=== PATIENT | male | born 1940 | race Caucasian/White ===

== ENCOUNTER → 2017-07-27 | Day surgery (SDC) | payer MEDICARE, OTHER ==
[~2017-07-27] MED LIST: EPINEPHrine 1 MG/ML VIAL; LIDOCAINE 1% PF 2 ML VIAL. ID; MIDAZOLAM HCL/PF 2 MG/2 ML VIAL. IV; PROPOFOL 20 ML IV; fentaNYL PF VIAL 100 MCG/2 ML VIAL IV
[2017-07-27] MEDS: IV RINGERS,LACTATED 1000ML 1,000 ML IV ×2 (10:40→10:42)
[2017-07-27 10:46] LABS: HEMOGLOBIN 11.5 g/dL (13.0-17.5); PLATELET COUNT 385 x10^3/uL (140-400); WHITE BLOOD COUNT 6.6 x10^3/uL (4.0-11.0)
[2017-07-27] MEDS: ALBUTEROL SULFATE 2.5 MG/3 ML NEBU. NEB (10:50)
[2017-07-27 11:03] LABS: INR 1.9 (0.8-1.1); PROTHROMBIN TIME PATIENT 21.5 SEC (11.7-14.0)
== END | disposition home or self-care (01) ==
LOC: SURG 09:48
DX: J18.9 Pneumonia, unspecified organism (principal); E78.00 Pure hypercholesterolemia, unspecified; I10 Essential (primary) hypertension; Z86.718 Personal history of other venous thrombosis and embolism; J44.9 Chronic obstructive pulmonary disease, unspecified; Z90.49 Acquired absence of other specified parts of digestive tract; Z85.51 Personal history of malignant neoplasm of bladder; M19.90 Unspecified osteoarthritis, unspecified site; Z79.01 Long term (current) use of anticoagulants; F17.200 Nicotine dependence, unspecified, uncomplicated
CPT/HCPCS: 31622; 31624; 36415; 85027; 85610; 87070; 87102; 87116; 87205; 88112; 94640; J0171; J2704; J7613

== ENCOUNTER → 2017-09-06 | Day surgery (SDC) | payer MEDICARE, OTHER ==
[~2017-09-06] MED LIST changes: -EPINEPHrine 1 MG/ML VIAL; -LIDOCAINE 1% PF 2 ML VIAL. ID; +LIDOCAINE 2% PF Vial for OR 5 ML VIAL.; -MIDAZOLAM HCL/PF 2 MG/2 ML VIAL. IV; -PROPOFOL 20 ML IV; +PROPOFOL 40 ML IV; -fentaNYL PF VIAL 100 MCG/2 ML VIAL IV
[2017-09-06] MEDS: IV RINGERS,LACTATED 1000ML 1,000 ML IV (07:30)
== END ==
LOC: ENDOS 06:47
DX: K29.50 Unspecified chronic gastritis without bleeding (principal); K64.0 First degree hemorrhoids; K57.30 Diverticulosis of large intestine without perforation or abscess without bleeding; Z86.718 Personal history of other venous thrombosis and embolism; J44.9 Chronic obstructive pulmonary disease, unspecified; I10 Essential (primary) hypertension; Z79.01 Long term (current) use of anticoagulants; F17.210 Nicotine dependence, cigarettes, uncomplicated; E78.00 Pure hypercholesterolemia, unspecified; M19.90 Unspecified osteoarthritis, unspecified site; Z95.1 Presence of aortocoronary bypass graft; Z90.49 Acquired absence of other specified parts of digestive tract; Z98.890 Other specified postprocedural states; Z92.21 Personal history of antineoplastic chemotherapy; Z72.89 Other problems related to lifestyle; Z85.51 Personal history of malignant neoplasm of bladder; D50.9 Iron deficiency anemia, unspecified; Z79.899 Other long term (current) drug therapy
CPT/HCPCS: 43235; 45378; J2001; J2704

== ENCOUNTER → 2017-09-29 | Outpatient (CLI) | payer MEDICARE, OTHER ==
[2017-09-06 08:57] VITALS: BP 126/78
[~2017-09-29] MED LIST changes: +CETI10CA PO; +CILO100T PO; +FLUT16SP2 NS; +Hydrocodone Bit/Acetaminophen PO; -LIDOCAINE 2% PF Vial for OR 5 ML VIAL.; +LISI-334 PO; -PROPOFOL 40 ML IV; +SIMV40TA PO; +TIOT18CA IH; +VENTOLIN HFA18 GM IH; +WARF-78 PO
[2017-10-03 17:16] LABS: C ANCA <1:20 titer (Neg:<1:20); P ANCA <1:20 titer (Neg:<1:20)
[2017-10-03 20:14] LABS: ASPERGILLUS 0.21 kU/L (Class 0/I)
== END | disposition home or self-care (01) ==
LOC: LAB 15:14
PROVIDERS: ATTEND Internal Medicine Critical Care Medicine
DX: R91.8 Other nonspecific abnormal finding of lung field (principal); I10 Essential (primary) hypertension; E78.5 Hyperlipidemia, unspecified; E78.00 Pure hypercholesterolemia, unspecified; J44.9 Chronic obstructive pulmonary disease, unspecified; Z79.01 Long term (current) use of anticoagulants; Z86.2 Personal history of diseases of the blood and blood-forming organs and certain disorders involving the immune mechanism; Z87.891 Personal history of nicotine dependence; Z85.51 Personal history of malignant neoplasm of bladder; Z92.21 Personal history of antineoplastic chemotherapy; Z86.718 Personal history of other venous thrombosis and embolism; Z90.49 Acquired absence of other specified parts of digestive tract
CPT/HCPCS: 36415; 86001; 86021

== ENCOUNTER → 2017-10-05 | Outpatient (CLI) | payer MEDICARE, OTHER ==
[2017-09-06 08:57] VITALS: BP 126/78
--- NOTE | 2017-10-05 15:18 | RAD ---
FDG tumor localization scan, PET/CT, 10/05/2017: History: Lung mass Following IV injection of 13.9 mCi of 18 F-FDG, imaging was performed from the skull base to the proximal thighs. The noncontrast CT component was performed for attenuation correction and anatomic localization purposes rather than for primary diagnosis. The patient's blood glucose level at the time of injection was 89 MG/DL. There is a small hypermetabolic nodule demonstrating a maximum SUV of 4.1 present along the posterior aspect of the angle of the mandible on the left. Its exact location is not clear due to misregistration from patient motion and dental artifacts on the CT component. It may lie along the inferior margin of left parotid gland. The neck activity is otherwise unremarkable. There is a large cavitary mass in the right upper chest centered in the right upper lobe extending into the apex. Its margins are irregular and hypermetabolic. Maximum SUV in the hypermetabolic components ranges from approximately 5-7. It measures at least 9 x 9 cm. A small amount of fluid is evident in the cavitary component. There are small irregular hypermetabolic extensions anteriorly and medially. There is a mildly hypermetabolic subcarinal node or node cluster with a maximum SUV of 3.7. There is a small tree-in-bud type opacity medially in the right middle lobe which is mildly hypermetabolic with a maximum SUV of 3.9. There are mildly hypermetabolic infiltrates in the right lower lobe, likely inflammatory in nature. There are emphysematous changes in the lungs. A calcified scar is present in the left upper lobe. No hypermetabolic left lung lesion is seen. Normal GI tract and urinary tract activity is present in the abdomen and pelvis. No hypermetabolic abdominal or pelvic lesion is seen. Incidental CT findings include the presence of extensive calcific plaquing of the aorta and its branches. There is a 5.1 cm infrarenal abdominal aortic aneurysm. It has increased in size since 01/28/2011 at which time it measured 4.1 cm. Sigmoid diverticula are present. IMPRESSION: 1. Large cavitary hypermetabolic right upper lung mass suggesting a primary lung malignancy. An infectious process/abscess is much less likely. 2. Mild mediastinal adenopathy. 3. Mildly hypermetabolic right middle lobe and right lower lobe infiltrates may be inflammatory. 4. Small hypermetabolic nodule along the inferior margin of the left parotid gland 5. Incidentally noted is a moderate-sized infrarenal abdominal aortic aneurysm.
== END | disposition home or self-care (01) ==
LOC: PETSC 12:37
PROVIDERS: ATTEND Internal Medicine Critical Care Medicine
DX: I71.4 Abdominal aortic aneurysm, without rupture (principal); K11.8 Other diseases of salivary glands; K57.30 Diverticulosis of large intestine without perforation or abscess without bleeding; I10 Essential (primary) hypertension; E78.5 Hyperlipidemia, unspecified; E78.00 Pure hypercholesterolemia, unspecified; J44.9 Chronic obstructive pulmonary disease, unspecified; R91.8 Other nonspecific abnormal finding of lung field; Z79.01 Long term (current) use of anticoagulants; Z86.2 Personal history of diseases of the blood and blood-forming organs and certain disorders involving the immune mechanism; Z86.718 Personal history of other venous thrombosis and embolism; Z92.21 Personal history of antineoplastic chemotherapy; Z85.51 Personal history of malignant neoplasm of bladder; Z90.49 Acquired absence of other specified parts of digestive tract
CPT/HCPCS: 78815; A9552

== ENCOUNTER 2017-11-01 07:00 | Outpatient (CLI) | payer MEDICARE, OTHER ==
[~2017-11-01] VITALS: Ht 177.8 cm; Wt 61.2 kg
[2017-11-01] VITALS (13 sets, daily range): BP systolic 97–130; BP diastolic 63–79
[2017-11-01] MEDS ORDERED: APIX2.5T PO (07:13)
[2017-11-01 07:27] LABS: BASO # 0.1 x10^3/uL (0.0-0.2); BASO % 2 % (0-3); EOS # 0.4 x10^3/uL (0.0-0.7); EOS % 7 % (0-3); HEMATOCRIT 35.6 % (39.0-53.0); HEMOGLOBIN 12.2 g/dL (13.0-17.5); LYMPH # 0.9 x10^3/uL (1.0-4.8); LYMPH % 15 % (24-48); MEAN CORPUSCULAR HEMOGLOBIN 34 pg (25-35); MEAN CORPUSCULAR HGB CONC 34 g/dL (31-37); MEAN CORPUSCULAR VOLUME 98 fL (79-100); MONO # 0.7 x10^3/uL (0.0-1.1); MONO % 12 % (0-9); NEUT # 3.6 x10^3uL (1.8-7.7); NEUT % 63 % (31-73); PLATELET COUNT 274 x10^3/uL (140-400); RED BLOOD COUNT 3.63 x10^6/uL (4.30-5.70); RED CELL DISTRIBUTION WIDTH 15.1 % (11.5-14.5); WHITE BLOOD COUNT 5.7 x10^3/uL (4.0-11.0)
[2017-11-01 07:35] LABS: PROTHROMBIN TIME PATIENT 13.5 SEC (11.7-14.0)
[2017-11-01] MEDS ORDERED: MIDAZOLAM HCL/PF 2 MG/2 ML VIAL. ONE (08:07)
[2017-11-01] MEDS ORDERED: FLUMAZENIL 0.5 MG/5 ML VIAL. IV ONE (08:08)
[2017-11-01] MEDS ORDERED: fentaNYL PF VIAL 100 MCG/2 ML VIAL ONE (08:08)
[2017-11-01] MEDS ORDERED: NALOXONE 0.4 MG/ML VIAL. ONE (08:08)
[2017-11-01] MEDS ORDERED: LIDOCAINE WITH 8.4% SOD BICARB 3 ML DISP.SYRIN. ONE (08:16)
[2017-11-01] MEDS ORDERED: MIDAZOLAM HCL/PF 2 MG/2 ML VIAL. IV ONE (08:45)
[2017-11-01] MEDS ORDERED: fentaNYL PF VIAL 100 MCG/2 ML VIAL IV ONE (08:45)
[2017-11-01] MEDS ORDERED: LIDOCAINE WITH 8.4% SOD BICARB 3 ML DISP.SYRIN. IJ ONE (08:45)
--- NOTE | 2017-11-01 09:14 | PDOC ---
MODERATE SEDATION ASSESSMENT RISKS/ALTERNATIVES Risks/Alternatives Risks and alternatives of this type of sedation and procedure discussed with: RISK/ALTERNATIVES: Patient H & P ON CHART H & P H & P on chart and reviewed for co-morbid conditions and appropriate labs. H&P ON CHART: Yes STATUS PREG STATUS ASSESSED: Yes MEDS/ALLERGIES REVIEWED Meds/Allergies Reviewed Medications and Allergies including time and route of recently administered narcotics and sedatives. MEDS/ALLERGIES REVIEWED: Yes ASA RATING ASA RATING: II AIRWAY ASSESSMENT Airway Assessment Airway patency, oral function limitations, presence of caps, crowns, dentures, partials, and ability to extend neck assessed. AIRWAY ASSESSMENT: Yes MALLAMPATI SCORE MALLAMPATI SCORE: II PRE-SEDATION ASSESSMENT PRE-SEDATION ASSESSMENT: Yes ILIR MOHAN MD Nov 01, 2017 09:14
--- NOTE | 2017-11-01 09:15 | PDOC ---
BRIEF OPERATIVE NOTE Pre-Op Diagnosis right cavitary lung mass Post-Op Diagnosis same Procedure Performed CT Lung biopsy Surgeon Eryn Anesthesia Type: Conscious Sedation Specimens Obtained 5 x 20g cores divided between formalin and saline for microbiological analysis Findings CT right lung biopsy Complications No immediate ILIR MOHAN MD Nov 01, 2017 09:15
--- NOTE | 2017-11-01 09:16 | PDOC1 ---
History and Physical Date of Procedure Date of Admission History of Present Illness Reason for Visit Adult with cavitary lung mass Past Medical History Past Medical History see nursing pre-op assessment Current Medications Current Medications Current Medications Midazolam HCl (Versed) 2 mg STK-MED ONCE .ROUTE ; Start 11/01/17 at 08:07; Stop 11/01/17 at 08:08; Status DC Fentanyl Citrate (Fentanyl 2ml Vial) 100 mcg STK-MED ONCE .ROUTE ; Start at 08:08; Stop 11/01/17 at 08:09; Status DC Flumazenil (Romazicon) 0.5 mg STK-MED ONCE IV ; Start 11/01/17 at 08:08; Stop at 08:09; Status DC Naloxone HCl (Narcan) 0.4 mg STK-MED ONCE .ROUTE ; Start 11/01/17 at 08:08; Stop 11/01/17 at 08:09; Status DC Lidocaine/Sodium Bicarbonate (Buffered Lidocaine 1%) 3 ml STK-MED ONCE .ROUTE ; Start 11/01/17 at 08:16; Stop 11/01/17 at 08:17; Status DC Lidocaine/Sodium Bicarbonate (Buffered Lidocaine 1%) 3 ml 1X ONCE IJ Last administered on 11/01/17at 08:45; Start 11/01/17 at 08:45; Stop 11/01/17 at 08:47 ; Status DC Midazolam HCl (Versed) 2 mg 1X ONCE IV Last administered on 11/01/17at 08:45; Start 11/01/17 at 08:45; Stop 11/01/17 at 08:47; Status DC Fentanyl Citrate (Fentanyl 2ml Vial) 100 mcg 1X ONCE IV Last administered on at 08:45; Start 11/01/17 at 08:45; Stop 11/01/17 at 08:47; Status DC Active Scripts Active Ventolin Hfa Inhaler (Albuterol Sulfate) 18 Gm Hfa.aer.ad 18 Gm IH QID Reported Eliquis (Apixaban) 2.5 Mg Tablet 2.5 Mg PO BID Cilostazol 100 Mg Tablet 1 Tab PO BID Spiriva (Tiotropium [place]) 18 Mcg Cap.w.dev 18 Mcg IH DAILY Flonase (Fluticasone Propionate) 16 Gm [place].susp 16 Gm NS DAILY PRN Zocor (Simvastatin) 40 Mg Tablet 40 Mg PO HS Allergies Allergies: Coded Allergies: No Known Drug Allergies (Unverified , 09/06/17) Physical Exam Vital Signs Vital Signs Date Time Temp Pulse Resp B/P (MAP) Pulse Ox O2 Delivery O2 Flow Rate FiO2 11/01/17 09:07 98 14 99 Nasal Cannula 2.0 11/01/17 09:00 126/69 (88) 11/01/17 07:32 98.3 98.3 Other see nursing pre-op assessment Assessment Assessment Right cavitary lung mass Plan Plan CT Lung biopsy ILIR MOHAN MD Nov 01, 2017 09:16
--- NOTE | 2017-11-01 09:28 | RAD ---
Procedure: CT-guided right lung biopsy Clinical Indication: 77-year-old male with cavitary right lung mass Sedation: Conscious sedation was administered with a total intraprocedural [id number] time of 20 minutes. The patient was monitored by a qualified independent observer throughout the time of sedation. Please refer to the medical record for exact doses of medications utilized to achieve moderate sedation. Antibiotics: None Sterility: The procedure was performed in its entirety using appropriate elements of sterile technique. Consent: The procedure was explained in its entirety to the patient or the patients designated merchandising representative by a member of the treatment team, including a discussion of the risks, benefits and commonly accepted alternatives to the procedure, as well as the expected consequences of no therapy whatsoever. Discussion of the risks included, but was not limited to, those that are most frequent and those that are rare but possibly severe or life-threatening, as well as the possibility of unforeseen complications. Technique and Findings: Following informed consent, the patient was prepped and draped in usual sterile fashion. Preliminary CT scan of the area of interest was performed. 1% lidocaine was used to achieve local anesthesia over the area of interest. A small dermatotomy was made. Under periodic CT surveillance, a small dermatotomy was made. A 19-gauge needle guide was advanced towards the thickest soft tissue component of the cavitary lung nodule and 5 x 20-gauge core biopsy specimens were obtained and divided between formalin and nonbacteriostatic saline for microbiologic analysis. A blood patch was applied as the needle guide was removed and hemostasis was achieved with manual compression. Complications: No immediate Impression: 1. CT-guided biopsy of a right cavitary lung mass as described PQRS Compliance Statement: One or more of the following individualized dose reduction techniques were utilized for this examination: 1. Automated exposure control 2. Adjustment of the mA and/or kV according to patient size 3. Use of iterative reconstruction technique
--- NOTE | 2017-11-01 11:57 | RAD ---
Single view chest 11/01/2017 CLINICAL INDICATION: Cavitary right lung mass, postbiopsy. COMPARISON: CT-guided biopsy 11/01/2017 FINDINGS: Inspiratory and expiratory AP views of the chest were obtained. There is a cavitary lesion in the right lung apex with adjacent apical pleural thickening. Coarse interstitial opacities inferior to the cavitary lesion extending to the right suprahilar region. There is hyperlucency of the lungs, predominantly the upper lobes, with pruning of the vasculature consistent with emphysema. Coarse bibasilar interstitial opacities. No pleural effusion. No pneumothorax. IMPRESSION: 1. No pneumothorax. 2. Persistent cavitary lesion in the right lung apex. Correlation with CT-guided biopsy results. 3. Diffuse coarse interstitial opacities, likely representing emphysema and fibrosis. Electronically signed by: Evan Wilcox MD (11/01/2017 11:54 AM) [id number]
== END 2017-11-01 12:23 | disposition home or self-care (01) ==
LOC: INTRAD 07:00
PROVIDERS: ATTEND Internal Medicine Critical Care Medicine
DX: R91.8 Other nonspecific abnormal finding of lung field (principal); Z79.899 Other long term (current) drug therapy; Z79.01 Long term (current) use of anticoagulants
CPT/HCPCS: 32405; 36415; 71046; 77012; 85025; 85610; 87071; 87075; 87102; 87116; 99152; J2250; J3010

== ENCOUNTER 2017-11-02 11:22 | Emergency (ER) | payer MEDICARE, OTHER ==
[~2017-11-02] VITALS: Ht 177.8 cm; Wt 61.2 kg
[~2017-11-02 11:22] MED LIST changes: +APIX2.5T PO
--- NOTE | 2017-11-02 12:28 | RAD ---
Portable chest, 11/02/2017: HISTORY: Follow-up lung biopsy Comparison is made to yesterday's study. The heart size is normal. There are unchanged pleural/parenchymal opacities in the right upper lobe with probable underlying cavitation. Moderate reticular opacities in the lung bases are changed and are compatible with fibrosis. There is no evidence of pneumothorax or significant pleural fluid. No new abnormality is seen. IMPRESSION: No significant change since yesterday's exam. Electronically signed by: Helder Carlson MD (11/02/2017 12:25 PM) [facility]
--- NOTE | 2017-11-02 12:47 | PHYS DOC ---
Past Medical History Past Medical History: COPD, DVT, High Cholesterol, Hypertension Past Surgical History: Cholecystectomy, Other Additional Past Surgical Histo: L LEG/VASCULAR Alcohol Use: Occasionally Drug Use: None Adult General Chief Complaint Chief Complaint: POST-OP PROBLEM HPI HPI Patient is a 77 year old male who presents with hemoptysis. The patient is followed by pulmonology at this hospital. He has undergone evaluation for chronic cough over the last year. Yesterday, he underwent a lung biopsy by interventional radiology. Patient awoke this morning and did have some episodes when he had a scant amount of hemoptysis. This caused him concern so he came to the emergency room. No fever or chills. No shortness of breath. He denies any pain today. Review of Systems Review of Systems Constitutional: Denies fever or chills Eyes: Denies HENT: Denies Respiratory: Denies cough Cardiovascular: No additional information not addressed in HPI GI: Denies abdominal pain : Denies dysuria Musculoskeletal: Denies back pain Integument: Denies rash Neurologic: Denies headache Endocrine: Denies polyuria All other systems were reviewed and found to be within normal limits, except as documented in this note. Allergies Allergies Allergies Coded Allergies Type Severity Reaction Last Updated Verified No Known Drug Allergies 09/06/17 No Physical Exam Physical Exam Constitutional: Well developed, well nourished, no acute distress, non-toxic HENT: Normocephalic, atraumatic, bilateral external ears normal, oropharynx moist Neck: Normal range of motion Cardiovascular:Heart rate regular rhythm, no murmur Lungs & Thorax: Bilateral breath sounds clear to auscultation, good air mvt in all garcia Abdomen: Bowel sounds normal, soft Skin: Warm, dry, no erythema, no rash Back: No tenderness Extremities: No edema Neurologic: Alert and oriented X 3 Psychologic: Affect normal Current Patient Data Vital Signs Vital Signs Date Time Temp Pulse Resp B/P (MAP) Pulse Ox O2 Delivery O2 Flow Rate FiO2 11/02/17 11:25 98.4 104 20 151/67 (95) 95 Room Air 98.4 EKG EKG [] Radiology/Procedures Radiology/Procedures CXR HISTORY: Follow-up lung biopsy Comparison is made to yesterday's study. The heart size is normal. There are unchanged pleural/parenchymal opacities in the right upper lobe with probable underlying cavitation. Moderate reticular opacities in the lung bases are changed and are compatible with fibrosis. There is no evidence of pneumothorax or significant pleural fluid. No new abnormality is seen. IMPRESSION: No significant change since yesterday's exam. Course & Med Decision Making Course & Med Decision Making Pertinent Labs and Imaging studies reviewed. (See chart for details) Yury is evaluated in the ER with hemoptysis following a lung biopsy. He does not have pneumothorax. Chest x-ray did not reveal any acute changes. The patient did have an example of what he had been coughing up which appeared to be a very tiny scant amount of blood that did not appear fresh. The patient has close follow-up Gerald scheduled with pulmonology. The patient is appropriate for discharge home today. He is provided reassurance that his symptoms will likely improve in the next couple days. Return precautions are discussed and he is advised to return for any massive hemoptysis which is described to him. All of his questions are answered prior to discharge home. Dragon Disclaimer Dragon Disclaimer This electronic medical record was generated, in whole or in part, using a voice recognition dictation system. Departure Departure Referrals: KRISTI ROQUE MD (PCP) CIELO STORM DO Nov 02, 2017 12:47
[2017-11-02 12:58] VITALS: BP 144/64
== END 2017-11-02 13:05 | disposition home or self-care (01) ==
LOC: ER 11:22
DX: R04.2 Hemoptysis (principal); E78.00 Pure hypercholesterolemia, unspecified; I10 Essential (primary) hypertension; J44.9 Chronic obstructive pulmonary disease, unspecified; Z86.718 Personal history of other venous thrombosis and embolism; Z90.49 Acquired absence of other specified parts of digestive tract
CPT/HCPCS: 71045; 99283

== ENCOUNTER → 2018-11-14 | Outpatient (CLI) | payer MEDICARE, OTHER ==
[2018-01-12 15:00] VITALS: BP 115/52
[~2018-11-14] MED LIST changes: +AZEL205.2 NS; +HYDR-2761 PO; +LACT1CAP19 PO; +LEVO500T59 PO; +SENN-22 PO
--- NOTE | 2018-11-14 17:05 | KCIC ---
PA and lateral chest x-ray compared to portable chest x-ray dated 01/09/2018 for history of COPD, right lung mass. FINDINGS: Changes of emphysema are noted. There is a cavitary region in the right lung apex associated with some parenchymal scarring, which is likely sequela of prior infection in this region. No area of active pneumonic infiltrate is identified. Heart size within normal limits. No significant osseous abnormality. IMPRESSION: 1. Chronic changes of COPD, with a cavitary right apical lung region surrounded by pleural parenchymal thickening. This area was previously under aerated, but resides at the site of an aggressive infection from December 2017, and likely represents pleural parenchymal scarring and bleb formation on the basis. No radiographic evidence of acute cardiopulmonary abnormality. Electronically signed by: Willy Cerna MD (11/14/2018 5:02 PM) [id number]
== END | disposition home or self-care (01) ==
LOC: KCIC 10:33
PROVIDERS: ATTEND Internal Medicine Critical Care Medicine
DX: J44.9 Chronic obstructive pulmonary disease, unspecified (principal)
CPT/HCPCS: 71046

== ENCOUNTER → 2019-04-09 | Outpatient (CLI) | payer MEDICARE, OTHER ==
[2018-01-12 15:00] VITALS: BP 115/52
--- NOTE | 2019-04-09 16:02 | KCIC ---
CHEST PA LATERAL Clinical indications: Shortness of air. COMPARISON: November 2018. Findings: Chronic hyperinflation is seen consistent with COPD. Chronic scarring within the right upper lobe with retraction of the right hilum. This includes a prominent bulla with right apical pleural thickening. This is unchanged. New infiltrate is seen within the lateral aspect of the right lung base. Chronic interstitial thickening is seen within the left lung field. Chronic pleural thickening is seen. No pleural effusion or pneumothorax is evident. The heart size, pulmonary vasculature, mediastinum and both orlin are unremarkable. The osseous structures appear intact. Impression: COPD. New lateral right lung base infiltrate. Electronically signed by: Enoc Jiang MD (04/09/2019 3:58 PM) [facility] [place]
== END | disposition home or self-care (01) ==
LOC: KCIC 11:09
PROVIDERS: ATTEND Internal Medicine Critical Care Medicine
DX: R91.8 Other nonspecific abnormal finding of lung field (principal); J92.9 Pleural plaque without asbestos; J44.9 Chronic obstructive pulmonary disease, unspecified; R23.8 Other skin changes
CPT/HCPCS: 71046

== ENCOUNTER → 2019-11-28 | Outpatient (CLI) | payer MEDICARE, OTHER ==
[2018-01-12 15:00] VITALS: BP 115/52
[~2019-11-28] MED LIST changes: -WARF-78 PO; +WARF5TAB2 PO
--- NOTE | 2019-11-28 14:32 | KCIC ---
PA and lateral views chest INDICATION: Shortness of air COMPARISON: Chest x-ray 04/09/2019 FINDINGS: Hyperlucent lungs in a pattern suggesting underlying COPD is redemonstrated with large apical bulla in the right lung. Coarse interstitial opacities are present again, similar to prior with improved aeration of the right lung base. These have not fully cleared in the interval. Possible developing left basilar opacity. No pneumothorax or pleural effusion. Heart and mediastinal contours are unremarkable. No acute or aggressive osseous lesions. No free air under the diaphragms. IMPRESSION: COPD with improved right basilar opacity. Possible developing left basilar opacity. Electronically signed by: Karon Wilson MD (11/28/2019 2:29 PM) [id number]
== END ==
LOC: KCIC 14:10
PROVIDERS: ATTEND Internal Medicine Critical Care Medicine
DX: J44.9 Chronic obstructive pulmonary disease, unspecified (principal)
CPT/HCPCS: 71046

== ENCOUNTER → 2020-12-24 | Outpatient (CLI) | payer MEDICARE, OTHER ==
[2018-01-12 15:00] VITALS: BP 115/52
[~2020-12-24] MED LIST changes: -LISI-334 PO; +LISI20TA18 PO
--- NOTE | 2020-12-24 16:11 | KCIC ---
PA and lateral chest x-ray compared to similar exam dated November 28, 2019 for lung mass, smoker in t he past, COPD. FINDINGS: Right upper lobe cystic abnormality with associated volume loss is stable. Lungs are hyperi nflated consistent with COPD. Stable appearing vague subcentimeter nodular opacity in the left midlun g. No other suspicious lung nodule or mass. Heart size within normal limits. No pleural effusion or p neumothorax. IMPRESSION: 1. Stable chest x-ray with indeterminate subcentimeter left midlung nodule and chronic large cystic a bnormality of the right upper lung. 2. COPD. Electronically signed by: Willy Cerna MD (12/24/2020 4:09 PM) [id number]
== END ==
LOC: KCIC 11:12
PROVIDERS: ATTEND Internal Medicine Critical Care Medicine
DX: R91.8 Other nonspecific abnormal finding of lung field (principal); J44.9 Chronic obstructive pulmonary disease, unspecified; Z87.891 Personal history of nicotine dependence
CPT/HCPCS: 71046

== ENCOUNTER → 2021-01-04 | Outpatient (CLI) | payer MEDICARE, OTHER ==
[2018-01-12 15:00] VITALS: BP 115/52
--- NOTE | 2021-01-04 11:36 | KCIC ---
EXAM: CT OF THE CHEST WITHOUT CONTRAST. HISTORY: Lung nodule. TECHNIQUE: Computed tomography of the chest was performed without intravenous contrast. One or more o f the following individualized dose reduction techniques were utilized for this examination: 1. Automated exposure control. 2. Adjustment of the mA and/or kV according to patient size. 3. Use of iterative reconstruction technique. COMPARISON: 01/09/2018. FINDINGS: Images of the upper abdomen reveal a benign 2 cm cyst in the left kidney. Changes of endolu rufina repair of an infrarenal abdominal aortic aneurysm are partially visualized. Bone windows reveal a chronic nonunified fracture of the sternal body inferiorly. There are chronic superior plate compr ession deformities at the thoracolumbar junction. There are no pathologically enlarged mediastinal or axillary lymph nodes. There is no pleural or fabi cardial effusion. The heart is not enlarged. There are atherosclerotic calcifications of the coronary arteries. A thick walled cavitary lesion in the right upper lobe measures 10.9 x 6.9 cm. This has been present chronically, but is now more inflated than on the prior study when it spanned 7.6 x 4.7 cm. The amoun t of soft tissue component has decreased. A scarlike nodule adjacent to the pleura in the right lower lobe on image 154 is stable chronically m easuring 18 x 10 mm. A nodule along the right minor fissure measures 10 x 6 mm. Sub-4 mm nodules as s een on image 102 appear benign. Previously noted infiltrates in the bases have resolved. There are new nodular infiltrates medially i n the left lower lobe appear inflammatory. Centrilobular emphysema is severe. There is interstitial l miles disease or scarring in both bases. IMPRESSION: 1. A chronic 11 cm thick walled cavitary lesion in the right upper lobe is likely a benign lesion suc h as an inflamed bulla. 2. New mild nodular infiltrates in the left base are likely postinflammatory. 3. Severe centrilobular emphysema with interstitial scarring in the bases. Other nodules appear stabl e and benign. 4. Chronic nonunified fracture of the sternal body. Electronically signed by: Noemi Small MD (01/04/2021 11:33 AM) [id number]
== END ==
LOC: KCIC CT 10:01
PROVIDERS: ATTEND Internal Medicine Critical Care Medicine
DX: S22.22XA Fracture of body of sternum, initial encounter for closed fracture (principal); R91.8 Other nonspecific abnormal finding of lung field; J43.2 Centrilobular emphysema; N28.1 Cyst of kidney, acquired; X58.XXXA Exposure to other specified factors, initial encounter; Y93.89 Activity, other specified; Y92.89 Other specified places as the place of occurrence of the external cause; Y99.8 Other external cause status; I25.10 Atherosclerotic heart disease of native coronary artery without angina pectoris
CPT/HCPCS: 71250

== ENCOUNTER → 2021-04-30 | Outpatient (CLI) | payer MEDICARE, OTHER ==
[2018-01-12 15:00] VITALS: BP 115/52
--- NOTE | 2021-04-30 13:27 | KCIC ---
STUDY: Noncontrast CT scan of the chest COMPARISON: Similar exam dated 01/02/2021 INDICATION:Lung nodule. TECHNIQUE: Contiguous axial images are obtained through the chest. No IV contrast was administered. Sagittal and coronal reformations are evaluated. EXPOSURE: One or more of the following individualized dose reduction techniques were utilized for thi s examination: 1. Automated exposure control 2. Adjustment of the mA and/or kV according to patient size 3. Use of iterative reconstruction technique FINDINGS: There are no acute or unstable pulmonary parenchymal abnormalities. Previously seen large 11 cm thick walled cavitary lesion in the right upper lobe is grossly unchanged in size and character from the p rior examination. Previously seen nodular infiltrates in the left lung base have resolved. In the lef t lingula, there is redemonstration of a stable irregular spiculated calcified 8 mm nodule, likely be nign. Extensive centrilobular emphysema with patchy areas of pleural parenchymal scarring is stable. There are no significant pleural abnormalities. No pleural effusions. There is no suspicious adenopat hy. Stable appearance of several small mediastinal lymph nodes. No acute or unstable chronic abnormal ities of the mediastinum. No suspicious abnormalities of the heart or pericardium. Moderate calcified atherosclerosis of the aorta. Extensive multifocal coronary artery calcifications. Infrarenal abdomi nal aortic endograft not completely demonstrated. Stable partially visualized exophytic left renal cy st. No other significant morphologic abnormalities of the upper abdominal organs. No suspicious osteo blastic or osteolytic bone lesions. Stable nonunited sternal fracture. Superior endplate compressions of L1 and L2 with large Schmorl's nodes. IMPRESSION: 1. Stable 11 cm cavitary right upper lobe lung mass. As previously noted, this may represent a benign lesion such as a chronically inflamed bulla. 2. Resolved left basilar infiltrates seen on prior exam. 3. Stable severe centrilobular emphysema. Electronically signed by: Willy Cerna MD (04/30/2021 1:25 PM) [id number]
== END ==
LOC: KCIC CT 08:43
PROVIDERS: ATTEND Internal Medicine Critical Care Medicine
DX: S22.20XK Unspecified fracture of sternum, subsequent encounter for fracture with nonunion (principal); R91.8 Other nonspecific abnormal finding of lung field; J43.2 Centrilobular emphysema; R91.1 Solitary pulmonary nodule; I70.0 Atherosclerosis of aorta; I25.10 Atherosclerotic heart disease of native coronary artery without angina pectoris; N28.1 Cyst of kidney, acquired; M51.46 Schmorl's nodes, lumbar region; X58.XXXD Exposure to other specified factors, subsequent encounter
CPT/HCPCS: 71250